=== PATIENT | male | born 1995 | race Asian ===

== ENCOUNTER 2018-10-03 21:19 | Emergency (ER) | payer OTHER ==
[~2018-10-03] VITALS: Ht 172.7 cm; Wt 67.1 kg
[2018-10-03] MEDS ORDERED: IBUPROFEN 200 MG TAB PO STA (22:07)
[2018-10-03] MEDS ORDERED: DEXAMETHASONE SOD PHOS 10 MG/1 ML VIAL IV ONE (22:15)
[2018-10-03] MEDS ORDERED: ACETAMINOPHEN 325 MG TAB PO ONE (22:15)
--- NOTE | 2018-10-03 22:52 | Diagnostic Imaging Report ---
EXAMINATION: CXR 2 VIEW - HOPD INDICATION: ^[id number] ^[id number] COMPARISON: None FINDINGS: PA and lateral views TUBES and LINES: None. LUNGS: Lungs are well inflated. There is no evidence of pneumonia or pulmonary edema. PLEURA: No pleural effusion or pneumothorax. HEART AND MEDIASTINUM: The cardiomediastinal silhouette is unremarkable. BONES AND SOFT TISSUES: No acute osseous lesion. Soft tissues are unremarkable. UPPER ABDOMEN: No free air under the diaphragm. IMPRESSION: No acute thoracic abnormality. Signed by: Dr. Deuce Montejo MD on 10/03/2018 10:49 PM
== END 2018-10-03 23:01 | disposition home or self-care (01) ==
LOC: FSED 21:19
DX: R07.89 Other chest pain (principal)
CPT/HCPCS: 71046; 80048; 81003; 82553; 84484; 85025; 85379; 93005; 99284